=== PATIENT | female | born 1935 | race Caucasian/White ===

== ENCOUNTER 2016-08-20 07:52 | Emergency (ER) | payer MEDICARE | END 2016-08-20 09:43 | disposition home or self-care (01) | LOC: ER 07:52 | DX: R07.89 Other chest pain (principal); T22.352D Burn of third degree of left shoulder, subsequent encounter; K21.9 Gastro-esophageal reflux disease without esophagitis; I10 Essential (primary) hypertension; Z90.710 Acquired absence of both cervix and uterus; Z79.899 Other long term (current) drug therapy; X08.8XXD Exposure to other specified smoke, fire and flames, subsequent encounter | CPT/HCPCS: 36415 ==